=== PATIENT | female | born 2000 | race Caucasian/White ===

== ENCOUNTER 2021-08-02 17:27 | Emergency (ER) | payer OTHER, SELFPAY ==
[~2021-08-02] VITALS: Ht 154.9 cm; Wt 63.6 kg
[2021-08-02 18:47] LABS: URINE PREG TEST NEGATIVE (NEGATIVE)
[2021-08-02 20:19] LABS: GC DNA AMPLIFICATION NEGATIVE (NEGATIVE)
[2021-08-02] MEDS ORDERED: MACR100C43 PO (20:25)
[2021-08-02] MEDS ORDERED: NITROFURANTOIN (MACROBID) 100 MG CAP PO ONE (20:30)
[2021-08-02 20:39] VITALS: BP 126/74
== END 2021-08-02 20:42 | disposition home or self-care (01) ==
LOC: M ED 17:27
DX: N39.0 Urinary tract infection, site not specified (principal)

== ENCOUNTER 2021-08-05 05:23 | Emergency (ER) | payer OTHER, SELFPAY ==
[~2021-08-05] VITALS: Ht 154.9 cm; Wt 62.3 kg
[~2021-08-05 05:23] MED LIST: MACR100C43 PO
[2021-08-05] MEDS ORDERED: CEFD300C41 PO (08:11)
[2021-08-05] MEDS ORDERED: ONDA4TAB6 PO (08:11)
[2021-08-05 08:15] VITALS: BP 117/78
== END 2021-08-05 08:18 | disposition home or self-care (01) ==
LOC: M ED 05:23
DX: N39.0 Urinary tract infection, site not specified (principal)

== ENCOUNTER 2021-08-08 15:13 | Emergency (ER) | payer OTHER ==
[~2021-08-08] VITALS: Ht 154.9 cm; Wt 59.6 kg
[2021-08-08 15:13] VITALS: BP 122/83
[~2021-08-08 15:13] MED LIST changes: +CEFD300C41 PO; +ONDA4TAB6 PO
[2021-08-08 17:49] LABS: BASO # 0.1 10^3/uL (0.0-0.2); BASO % 0.5 % (0.0-1.0); EOS # 0.1 10^3/uL (0.0-0.5); EOS % 1.5 % (0.0-3.0); HEMATOCRIT 41.9 % (36.0-47.0); HEMOGLOBIN 13.7 g/dl (12.0-15.5); LYMPH # 2.4 10^3/uL (1.5-5.0); LYMPH % 26.3 % (24.0-44.0); MEAN CORPUSCULAR HEMOGLOBIN 26.4 pg (27.0-33.0); MEAN CORPUSCULAR HGB CONC 32.7 g/dl (32.0-36.5); MEAN CORPUSCULAR VOLUME 80.9 fl (80.0-96.0); MONO # 0.5 10^3/uL (0.0-0.8); MONO % 5.1 % (2.0-8.0); NEUTROPHILS % 66.2 % (36.0-66.0); PLATELET COUNT, AUTOMATED 328 10^3/uL (150-450); RED BLOOD COUNT 5.18 10^6/uL (4.00-5.40); WHITE BLOOD COUNT 9.2 10^3/uL (4.0-10.0)
[2021-08-08 18:10] LABS: BLOOD UREA NITROGEN 8 MG/DL (7-18); CALCIUM LEVEL 8.7 MG/DL (8.5-10.1); CARBON DIOXIDE LEVEL 24 MEQ/L (21-32); CHLORIDE LEVEL 109 MEQ/L (98-107); CREATININE FOR GFR 0.61 MG/DL (0.55-1.30); GLOMERULAR FILTRATION RATE > 60.0 (>60); GLUCOSE, FASTING 74 MG/DL (70-100); POTASSIUM SERUM 3.9 MEQ/L (3.5-5.1); SODIUM LEVEL 138 MEQ/L (136-145)
[2021-08-08] MEDS ORDERED: CEPH500C PO (18:24)
[2021-08-08] MEDS ORDERED: CEPHALEXIN 500 MG CAP PO ONE (18:30)
[2021-08-08] MEDS ORDERED: PYRI1TAB5 PO (18:47)
== END 2021-08-08 18:57 | disposition home or self-care (01) ==
LOC: M ED 15:13
DX: N30.90 Cystitis, unspecified without hematuria (principal)